=== PATIENT | female | born 1960 | race African-American/Black ===

== ENCOUNTER 2022-11-05 17:13 | Inpatient (IN) | payer MEDICAID ==
[~2022-11-05] VITALS: Ht 167.6 cm; Wt 50.4 kg
[2022-11-05] MEDS ORDERED: ONDANSETRON HCL 4MG/2ML INJ IV STA (17:18)
[2022-11-05] MEDS ORDERED: MORPHINE SULFATE 4 MG/ML CPJ (NOT FOR IM USE) IV STA (17:18)
[2022-11-05] MEDS ORDERED: SODIUM CHLORIDE 0.9% 1,000 ML IV ONE (17:30)
[2022-11-05 17:45] LABS: BASOPHILS % 0.4 % (0.0-2.0); EOSINOPHILS % 0.6 % (0.0-5.0); HEMATOCRIT. 25.3 % (36.0-48.0); HEMOGLOBIN. 8.3 g/dL (12.0-16.0); LYMPHOCYTES % 24.3 % (20.0-50.0); MEAN CORPUSCULAR HEMOGLOBIN 30.6 pg (28.0-32.0); MEAN CORPUSCULAR HGB CONC 32.9 g/dL (31.0-37.0); MEAN CORPUSCULAR VOLUME 92.9 fL (81.0-99.0); MEAN PLATELET VOLUME 6.6 fl (7.4-10.4); MONOCYTES % 8.7 % (2.0-8.0); PLATELET 356 x1000/uL (130-400); RED BLOOD CELL COUNT 2.72 mill/uL (4.2-5.4); WHITE BLOOD COUNT 5.7 x1000/uL (4.5-11.0)
[2022-11-05 17:59] LABS: CHLORIDE 105 mEq/L (98-107); INDEX HEMOLYSI 1 (1-3); INDEX ICTERIC 1 (1-4); INDEX LIPEMIC 1 (1-3); SODIUM 133 mEq/L (136-145)
[2022-11-05 18:06] LABS: ALANINE AMINOTRANSFERASE 16 IU/L (13-61); ALBUMIN 2.7 g/dL (3.4-5.0); ASPARTATE AMINOTRANSFERASE 88 IU/L (15-37); BILIRUBIN TOTAL 0.3 mg/dL (0.1-1.0); CARBON DIOXIDE 26 mEq/L (21-32); CREATININE 0.4 mg/dL (0.6-1.3); GLUCOSE 105 mg/dL (70-105); PROTEIN TOTAL 7.9 g/dL (6.0-8.3); UREA NITROGEN BLOOD 6 mg/dL (7-21)
[2022-11-05] MEDS ORDERED: CEFTRIAXONE 1GM PREMIX 50 ML IV ONE (19:00)
[2022-11-05] MEDS ORDERED: MORPHINE SULFATE 4 MG/ML CPJ (NOT FOR IM USE) IV NR (20:45)
[2022-11-05] MEDS ORDERED: CEFTRIAXONE 1GM PREMIX 50 ML IV NR (20:45)
[2022-11-05] MEDS ORDERED: ONDANSETRON HCL 4MG/2ML INJ IV NR (20:45)
[2022-11-05 21:56] LABS: CLARITY URINE CLOUDY (CLEAR); COLOR URINE YELLOW (YELLOW); GLUCOSE URINE NEGATIVE (NEGATIVE); KETONES URINE NEGATIVE (NEGATIVE); LEUKOCYTE ESTERASE URINE 3+ (NEGATIVE); NITRITE URINE NEGATIVE (NEGATIVE); OCCULT BLOOD URINE NEGATIVE (NEGATIVE); PROTEIN URINE NEGATIVE (NEGATIVE); SPECIFIC GRAVITY URINE 1.014 (1.005-1.030)
[2022-11-05 22:14] LABS: BACTERIA URINE 3+; RBC URINE 0-2 /hpf (0-2); SQUAMOUS EPITHELIAL CELL URINE 1+ /lpf (RARE/1+)
[2022-11-06] VITALS (7 sets, daily range): BP systolic 104–130; BP diastolic 67–93; PULSE 78–94; RESP 16–22; TEMP 97–100.4
[2022-11-06] MEDS ORDERED: MORPHINE SULFATE 2 MG/ML CPJ (NOT FOR IM USE) IV NR (00:30)
[2022-11-06] MEDS ORDERED: CEFTRIAXONE 1GM PREMIX 50 ML IV SCH (06:00)
[2022-11-06] MEDS: HYDROCODONE/ACETAMINOPHEN 10/325MG TABLET PO PRN ×2 (10:12→17:43)
[2022-11-06] MEDS: MORPHINE SULFATE 30MG TABLET SR PO SCH ×2 (13:37→20:56)
[2022-11-06] MEDS: CEFTRIAXONE 1,000 MG in DEXTROSE 5% WATER 50 ML IV SCH (20:51)
[2022-11-06] MEDS: ZOLPIDEM TARTRATE 5MG TABLET PO PRN (23:11)
[2022-11-07 01:09] VITALS: BP 148/86; PULSE 79; RESP 16; TEMP 98.7
[2022-11-07 04:00] VITALS: BP 115/78; PULSE 76; RESP 16; TEMP 98.6
[2022-11-07] MEDS: HYDROCODONE/ACETAMINOPHEN 10/325MG TABLET PO PRN ×2 (05:10→10:14)
[2022-11-07 07:17] LABS: BASOPHILS % 0.6 % (0.0-2.0); HEMATOCRIT. 24.4 % (36.0-48.0); HEMOGLOBIN. 8.1 g/dL (12.0-16.0); LYMPHOCYTES % 25.8 % (20.0-50.0); MEAN CORPUSCULAR HEMOGLOBIN 30.7 pg (28.0-32.0); MEAN CORPUSCULAR HGB CONC 33.1 g/dL (31.0-37.0); MEAN CORPUSCULAR VOLUME 92.7 fL (81.0-99.0); MEAN PLATELET VOLUME 6.9 fl (7.4-10.4); MONOCYTES % 9.7 % (2.0-8.0); NEUTROPHILS % 62.9 % (40.0-76.0); PLATELET 349 x1000/uL (130-400); RED BLOOD CELL COUNT 2.64 mill/uL (4.2-5.4); RED CELL DISTRIBUTION WIDTH 19.2 % (11.6-14.6)
[2022-11-07 07:58] LABS: CHLORIDE 104 mEq/L (98-107); INDEX HEMOLYSI 1 (1-3); INDEX ICTERIC 1 (1-4); INDEX LIPEMIC 1 (1-3); POTASSIUM 3.9 mEq/L (3.5-5.1); SODIUM 137 mEq/L (136-145)
[2022-11-07 08:00] VITALS: BP 115/75; PULSE 77; RESP 17; TEMP 100.2
[2022-11-07 08:09] LABS: CALCIUM 9.5 mg/dL (8.5-10.1); CARBON DIOXIDE 26 mEq/L (21-32); CREATININE 0.4 mg/dL (0.6-1.3); GLUCOSE 86 mg/dL (70-105); UREA NITROGEN BLOOD 8 mg/dL (7-21)
[2022-11-07] MEDS: MORPHINE SULFATE 30MG TABLET SR PO SCH ×2 (08:53→20:02)
[2022-11-07] MEDS ORDERED: NALOXONE HCL 0.4MG/ML VIAL IV PRN (09:30)
[2022-11-07 12:00] VITALS: BP 117/65; PULSE 70; RESP 16; TEMP 98.8
[2022-11-07] MEDS ORDERED: LEVO-65 MT (12:16)
[2022-11-07 16:00] VITALS: BP 120/63; PULSE 68; RESP 15; TEMP 98.7
[2022-11-07 20:00] VITALS: BP 149/103; PULSE 97; RESP 20; TEMP 98.9
[2022-11-07] MEDS: CEFTRIAXONE 1,000 MG in DEXTROSE 5% WATER 50 ML IV SCH (20:38)
[2022-11-07] MEDS: ZOLPIDEM TARTRATE 5MG TABLET PO PRN (21:13)
[2022-11-08 04:00] VITALS: BP 118/77; PULSE 75; RESP 17; TEMP 97.7
[2022-11-08] MEDS: HYDROCODONE/ACETAMINOPHEN 10/325MG TABLET PO PRN ×3 (04:10→22:00)
[2022-11-08 08:00] VITALS: BP 123/63; PULSE 68; RESP 16; TEMP 98.7
[2022-11-08] MEDS: MORPHINE SULFATE 30MG TABLET SR PO SCH ×2 (08:52→21:25)
[2022-11-08 12:00] VITALS: BP 120/58; PULSE 70; RESP 17; TEMP 97.6
[2022-11-08 16:00] VITALS: BP 118/64; PULSE 68; RESP 16; TEMP 98.1
[2022-11-08] MEDS: CEFTRIAXONE 1,000 MG in DEXTROSE 5% WATER 50 ML IV SCH (21:26)
[2022-11-08] MEDS: ZOLPIDEM TARTRATE 5MG TABLET PO PRN (21:31)
[2022-11-09] MEDS: HYDROCODONE/ACETAMINOPHEN 10/325MG TABLET PO PRN ×3 (04:11→18:27)
[2022-11-09 08:00] VITALS: BP 139/79; PULSE 76; TEMP 97.7
[2022-11-09] MEDS: MORPHINE SULFATE 30MG TABLET SR PO SCH ×2 (08:29→20:29)
[2022-11-09 12:00] VITALS: BP 113/69; PULSE 70; TEMP 97.7
[2022-11-09 16:00] VITALS: BP 132/79; PULSE 70; TEMP 98.8
[2022-11-09 20:00] VITALS: PULSE 76; RESP 17; TEMP 98
[2022-11-09] MEDS: ZOLPIDEM TARTRATE 5MG TABLET PO PRN (20:29)
[2022-11-09] MEDS: CEFTRIAXONE 1,000 MG in DEXTROSE 5% WATER 50 ML IV SCH (20:30)
[2022-11-10] MEDS: HYDROCODONE/ACETAMINOPHEN 10/325MG TABLET PO PRN ×2 (08:17→12:17)
[2022-11-10] MEDS: MORPHINE SULFATE 30MG TABLET SR PO SCH ×2 (09:23→20:11)
[2022-11-10 12:00] VITALS: BP 110/61; PULSE 73; RESP 19; TEMP 97.9
[2022-11-10 16:00] VITALS: BP 124/74; PULSE 78; RESP 20; TEMP 97.7
[2022-11-10] MEDS: OXYCODONE HCL/ACETAMINOPHEN 5/325MG TABLET PO PRN (17:20)
[2022-11-10 20:00] VITALS: BP 138/87; PULSE 88; RESP 19; TEMP 98.4
[2022-11-10] MEDS: CEFTRIAXONE 1,000 MG in DEXTROSE 5% WATER 50 ML IV SCH (21:18)
[2022-11-10] MEDS: ZOLPIDEM TARTRATE 5MG TABLET PO PRN (21:22)
[2022-11-11] MEDS: OXYCODONE HCL/ACETAMINOPHEN 5/325MG TABLET PO PRN ×2 (07:54→19:00)
[2022-11-11 08:00] VITALS: BP 118/72; PULSE 81; RESP 20; TEMP 97.4
[2022-11-11] MEDS: MORPHINE SULFATE 30MG TABLET SR PO SCH (08:54)
[2022-11-11 12:00] VITALS: BP 112/65; PULSE 77; RESP 20; TEMP 98.4
[2022-11-11 16:00] VITALS: BP 106/67; PULSE 75; RESP 20; TEMP 98.2
[2022-11-11 20:00] VITALS: BP 108/69; PULSE 80; RESP 20; TEMP 97.7
[2022-11-11] MEDS: ZOLPIDEM TARTRATE 5MG TABLET PO PRN (21:20)
[2022-11-12 04:00] VITALS: BP 127/74; PULSE 81; RESP 18; TEMP 98.1
[2022-11-12] MEDS: OXYCODONE HCL/ACETAMINOPHEN 5/325MG TABLET PO PRN ×2 (04:27→20:17)
[2022-11-12 08:00] VITALS: BP 127/73; PULSE 78; RESP 19; TEMP 97.9
[2022-11-12] MEDS: MORPHINE SULFATE 30MG TABLET SR PO SCH ×2 (08:07→23:16)
[2022-11-12] MEDS: DOCUSATE SODIUM 250MG CAPSULE PO SCH (08:07)
[2022-11-12 12:00] VITALS: BP 103/62; PULSE 77; RESP 20; TEMP 98.1
[2022-11-12 16:00] VITALS: BP 111/78; PULSE 78; RESP 20; TEMP 96.9
[2022-11-12 20:00] VITALS: BP 122/75; PULSE 84; RESP 20; TEMP 98.4
[2022-11-13 04:00] VITALS: BP 112/73; PULSE 78; RESP 20; TEMP 97.2
[2022-11-13] MEDS: OXYCODONE HCL/ACETAMINOPHEN 5/325MG TABLET PO PRN ×2 (05:45→17:09)
[2022-11-13 08:00] VITALS: BP 115/70; PULSE 85; RESP 20; TEMP 97.5
[2022-11-13] MEDS: DOCUSATE SODIUM 250MG CAPSULE PO SCH (09:50)
[2022-11-13] MEDS: MORPHINE SULFATE 30MG TABLET SR PO SCH ×2 (09:50→21:13)
[2022-11-13 12:00] VITALS: BP 107/77; PULSE 95; RESP 20; TEMP 97.9
[2022-11-13 16:00] VITALS: BP 107/62; PULSE 77; RESP 20; TEMP 98.1
[2022-11-14] MEDS: OXYCODONE HCL/ACETAMINOPHEN 5/325MG TABLET PO PRN ×3 (00:35→15:40)
[2022-11-14 08:00] VITALS: BP 110/64; PULSE 80; RESP 20; TEMP 98.3
[2022-11-14] MEDS: MORPHINE SULFATE 30MG TABLET SR PO SCH ×2 (08:52→20:43)
[2022-11-14] MEDS: DOCUSATE SODIUM 250MG CAPSULE PO SCH (08:52)
[2022-11-14 12:00] VITALS: BP 108/64; PULSE 78; RESP 20; TEMP 98.5
[2022-11-14 16:00] VITALS: BP 110/66; PULSE 76; RESP 20; TEMP 98.1
[2022-11-14 20:00] VITALS: BP 116/60; PULSE 91; RESP 16; TEMP 98.2
[2022-11-15] MEDS: OXYCODONE HCL/ACETAMINOPHEN 5/325MG TABLET PO PRN ×4 (00:02→18:33)
[2022-11-15 08:00] VITALS: BP 124/73; PULSE 75; RESP 20; TEMP 98.6
[2022-11-15] MEDS: MORPHINE SULFATE 30MG TABLET SR PO SCH ×2 (09:30→20:27)
[2022-11-15] MEDS: DOCUSATE SODIUM 250MG CAPSULE PO SCH (09:30)
[2022-11-15 12:00] VITALS: BP 138/83; PULSE 89; RESP 20; TEMP 99.9
[2022-11-15 16:00] VITALS: BP 134/83; PULSE 82; RESP 20; TEMP 98.4
[2022-11-16] MEDS: OXYCODONE HCL/ACETAMINOPHEN 5/325MG TABLET PO PRN ×3 (00:42→16:25)
[2022-11-16] MEDS: MORPHINE SULFATE 30MG TABLET SR PO SCH ×2 (08:38→20:41)
[2022-11-16] MEDS: DOCUSATE SODIUM 250MG CAPSULE PO SCH (08:38)
[2022-11-16 20:00] VITALS: BP 110/67; PULSE 78; RESP 18; TEMP 98
[2022-11-17] MEDS: OXYCODONE HCL/ACETAMINOPHEN 5/325MG TABLET PO PRN ×3 (01:00→13:58)
[2022-11-17] MEDS: DOCUSATE SODIUM 250MG CAPSULE PO SCH (08:56)
[2022-11-17] MEDS: MORPHINE SULFATE 30MG TABLET SR PO SCH ×2 (08:57→20:33)
[2022-11-17] MEDS ORDERED: NALOXONE HCL 0.4MG/ML VIAL IV PRN (13:45)
[2022-11-17 16:00] VITALS: BP 114/74; PULSE 80; RESP 20; TEMP 99
[2022-11-17 20:00] VITALS: BP 131/80; PULSE 88; RESP 20; TEMP 97.7
[2022-11-18] VITALS: BP 126/83; PULSE 73; RESP 20; TEMP 98
[2022-11-18] MEDS: OXYCODONE HCL/ACETAMINOPHEN 5/325MG TABLET PO PRN ×3 (00:57→13:29)
[2022-11-18 08:00] VITALS: BP 118/71; PULSE 82; RESP 20; TEMP 98.2
[2022-11-18] MEDS: DOCUSATE SODIUM 250MG CAPSULE PO SCH (09:01)
[2022-11-18] MEDS: MORPHINE SULFATE 30MG TABLET SR PO SCH (09:01)
[2022-11-18 12:00] VITALS: BP 101/61; PULSE 78; RESP 20; TEMP 97.9
[2022-11-18 15:58] VITALS: BP 118/71; PULSE 78; TEMP 97.9; O2SAT 98
[2022-11-18 16:00] VITALS: BP 108/64; PULSE 100; RESP 20; TEMP 97.4
== END 2022-11-18 18:30 | DRG 463 ==
LOC: ER 17:13 → 6WST 19:56 → EDBEDREQ 20:01 → EDBEDREQTM 20:01 → 6WST 11-06 07:37
PROVIDERS: ADMIT Internal Medicine; ATTEND Internal Medicine
DX: N39.0 Urinary tract infection, site not specified (principal); E43 Unspecified severe protein-calorie malnutrition; C79.51 Secondary malignant neoplasm of bone; E87.1 Hypo-osmolality and hyponatremia; C50.919 Malignant neoplasm of unspecified site of unspecified female breast; D64.9 Anemia, unspecified; G89.29 Other chronic pain; Z68.1 Body mass index [BMI] 19.9 or less, adult; Z85.3 Personal history of malignant neoplasm of breast; Z74.01 Bed confinement status
CPT/HCPCS: 36415; 71045; 72131; 80048; 80053; 81003; 85025; 93005; 97110; 97161; 97530; 97535; 99285; J0696; J2270; J2405; J7030; J7060; A4315